=== PATIENT | male | born 1970 | race Caucasian/White ===

== ENCOUNTER 2017-12-22 15:34 | Emergency (ER) | payer OTHER ==
[2017-12-22 16:15] VITALS: BP 135/83
--- NOTE | 2017-12-22 16:43 | UC ---
Abdominal Pain Male HPI - HPI Summary HPI Summary: Pt c/o gradual onset of generalized abdominal pain with abdominal bloating and discomfort X 1 week. Pt has been taking tums and ibuprofen with reported improvement of discomfort. Pt denies fever, chills, nausea, diarrhea, constipation hematochezia or history of GI disorders. - History of Current Complaint Chief Complaint: UCAbdominalPain Stated Complaint: ABD PAIN, FATIGUE Time Seen by Provider: 12/22/17 16:18 Hx Obtained From: Patient Onset/Duration: Gradual Onset, Lasting Days - 7, Still Present Timing: Constant Severity Initially: Mild Severity Currently: Mild Pain Intensity: 3 Location: Diffuse Radiates: No Character: Colicy, Dull Aggravating Factor(s): Nothing Alleviating Factor(s): Meds Associated Signs And Symptoms: Positive: Negative - Risk Factors Cardiac Risk Factors: Negative - Allergies/Home Medications Allergies/Adverse Reactions: Allergies Allergy/AdvReac Type Severity Reaction Status Date / Time seasonal Allergy Congestion Uncoded 12/22/17 16:15 Home Medications: Home Medications NK [No Home Medications Reported] 12/22/17 [History Confirmed 12/22/17] PMH/Surg Hx/FS Hx/Imm Hx Previously Healthy: Yes - Surgical History Surgical History: Yes Surgery Procedure, Year, and Place: b/l arm fxs, appy, facial birthmark - Family History Known Family History: Positive: Cardiac Disease - Social History Occupation: Employed Full-time Lives: With Family Alcohol Use: Occasionally Substance Use Type: None Smoking Status (MU): Never Smoked Tobacco Have You Smoked in the Last Year: No - Immunization History Most Recent Tetanus Shot: unknown Review of Systems Constitutional: Negative Skin: Negative Eyes: Negative ENT: Negative Respiratory: Negative Cardiovascular: Negative Gastrointestinal: Abdominal Pain Genitourinary: Negative Motor: Negative Neurovascular: Negative Musculoskeletal: Negative Neurological: Negative Psychological: Negative Is Patient Immunocompromised?: No All Other Systems Reviewed And Are Negative: Yes Physical Exam Triage Information Reviewed: Yes Appearance: Well-Appearing Vital Signs: Initial Vital Signs Temp 99.3 F 12/22/17 16:10 Pulse 79 12/22/17 16:10 Resp 17 12/22/17 16:10 BP 135/83 12/22/17 16:10 Pulse Ox 99 12/22/17 16:10 Vital Signs Reviewed: Yes Eye Exam: Normal ENT Exam: Normal Dental Exam: Normal Neck exam: Normal Respiratory Exam: Normal Cardiovascular Exam: Normal Abdomen Description: Positive: Other: - umbilicus discomfort with palpation Bowel Sounds: Positive: Present Musculoskeletal Exam: Normal Neurological Exam: Normal Psychological Exam: Normal Skin Exam: Normal Abd Pain Male Course/Dx - Course Course Of Treatment: I discussed with the pt the need to follow up with his PCP for further testing and evaluation. Pt verbalized understanding and agreed to plan of care. - Differential Dx/Clinical Impression Differential Diagnosis/HQI/PQRI: Diverticulitis, Pancreatitis, Peptic Ulcer Disease Provider Diagnoses: abdominal pain Discharge - Sign-Out/Discharge Documenting (check all that apply): Discharge - Discharge Plan Condition: Stable Disposition: HOME Patient Education Materials: Abdominal Pain (ED) Referrals: Yris Bagley MD [Primary Care Provider] - As Soon As Possible Additional Instructions: Please follow up with your PCP as soon as possible regarding your complaint of abdominal pain. - Billing Disposition and Condition Condition: STABLE Disposition: HOME
== END 2017-12-22 16:51 | disposition home or self-care (01) ==
LOC: UCCORT 15:34
DX: R10.84 Generalized abdominal pain (principal)
CPT/HCPCS: 99201; G0463

== ENCOUNTER 2019-10-08 13:41 | Emergency (ER) | payer OTHER ==
[2019-10-08 14:06] VITALS: BP 135/85
--- NOTE | 2019-10-08 14:14 | UC ---
Dental HPI - HPI Summary HPI Summary: 49-year-old male who broke an upper molar approximate 6 months ago but did not follow-up with the dentist. Yesterday he started having some pain to that area with an abscess present which he pressed on and it drained. He stated the area felt better however today his right facial cheek was swollen and his gumline still swollen and red. - History of Current Complaint Chief Complaint: UCDentalProblem Stated Complaint: DENTAL Time Seen by Provider: 10/08/19 14:08 Hx Obtained From: Patient Onset/Duration: Gradual Onset Severity: Mild Pain Intensity: 4 Alleviating Factor(s): Nothing - Patient states he does not have a lot of pain associated with this and has felt better since the abscess drained yesterday. - Allergies/Home Medications Allergies/Adverse Reactions: Allergies Allergy/AdvReac Type Severity Reaction Status Date / Time No Known Allergies Allergy Verified 10/08/19 14:01 PMH/Surg Hx/FS Hx/Imm Hx Previously Healthy: Yes - Surgical History Surgical History: Yes Surgery Procedure, Year, and Place: b/l arm fxs, appy, facial birthmark - Family History Known Family History: Positive: Cardiac Disease - Social History Alcohol Use: Occasionally Substance Use Type: None Smoking Status (MU): Never Smoked Tobacco Have You Smoked in the Last Year: No - Immunization History Most Recent Tetanus Shot: unknown Review of Systems All Other Systems Reviewed And Are Negative: Yes ENT: Positive: Dental Pain Is Patient Immunocompromised?: No Physical Exam Triage Information Reviewed: Yes Appearance: Well-Appearing, No Pain Distress, Well-Nourished Vital Signs: Initial Vital Signs Temp 98.5 F 10/08/19 14:02 Pulse 67 10/08/19 14:02 Resp 16 10/08/19 14:02 BP 135/85 10/08/19 14:02 Pulse Ox 100 10/08/19 14:02 Vital Signs Reviewed: Yes Eyes: Positive: Conjunctiva Clear ENT: Positive: Pharynx normal, TMs normal, Uvula midline Dental: Positive: Dental Fracture @ - Patient has 2 right upper molars that are broken almost to the gumline with the gumline itself swollen, erythematous but no specific abscess present. Tender on palpation. Respiratory: Positive: Lungs clear, Normal breath sounds, No respiratory distress, No accessory muscle use Cardiovascular: Positive: RRR, No Murmur, Pulses Normal, Brisk Capillary Refill Musculoskeletal Exam: Normal Neurological Exam: Normal Psychological Exam: Normal Skin Exam: Normal Dental Complaint Course/Dx - Course Course Of Treatment: Patient is comfortable here. He states the area feels a little better today since he drained the abscess yesterday. He has an oral surgeon he is seen in the past and he is going to call them tomorrow to make an appointment. He states take the Augmentin with food. He hasn't needed any pain medicine but I did advise him to take Motrin if he does have pain. Patient is agreeable to this plan of action. - Differential Dx/Diagnosis Provider Diagnosis: Dental abscess Discharge ED - Sign-Out/Discharge Documenting (check all that apply): Patient Departure All imaging exams completed and their final reports reviewed: No Studies - Discharge Plan Condition: Fair Disposition: HOME Prescriptions: Amoxicillin/Clavulanate TAB* [Augmentin TAB 875*] 875 mg PO BID 10 Days #20 tab Patient Education Materials: Dental Abscess (ED) Referrals: Yris Bagley MD [Primary Care Provider] - Additional Instructions: Take the Augmentin with food. May take ibuprofen 600 mg every 8 hours as needed for pain. Definite follow-up with the oral surgeon of choice, call tomorrow and make an appointment to be rechecked. - Billing Disposition and Condition Condition: FAIR Disposition: Home
== END 2019-10-08 14:24 | disposition home or self-care (01) ==
LOC: UCCORT 13:41
DX: K04.7 Periapical abscess without sinus (principal)
CPT/HCPCS: 99212; G0463